=== PATIENT | female | born 1995 | race Caucasian/White ===

== ENCOUNTER → 2016-08-13 | Outpatient (CLI) | payer OTHER ==
--- NOTE | 2016-08-15 20:14 | US ---
Examination: Greater than 14 weeks transabdominal ultrasound with color Doppler and M-mode evaluatio n. HISTORY: FINDINGS: LMP is 03/23/2016 EVALUATION: Anterior placenta with a cephalic lie and grade 1. Visually amniotic fluid is with in normal limits. Three-vessel cord is seen. Ventricles are within normal limits. Nuchal fold thickness is 2 mm. Four chamber heart is noted. Heart rate is 151 beats per minute. BIOMETRY AND GESTATIONAL AGE: Biparietal diameter 4.7 cm. The abdominal circumference measures 15.6 cm. The femoral length is 3.5 cm with head circumference of 18.3 cm. Gestational age is 20 weeks and 4 days. The expected date of delivery is approximately 12/27/2016. Fetus weight is 378 grams. Overall the fetus is within the 66th percentile. Other detail anatomy summarized into PACs sheet after the images. No anatomical anomalies. IMPRESSION: Single active IU with cephalic fetus. Anterior placenta with grade 1, no placenta previa. No anomalies are seen. Amniotic fluid appears within normal limits.
== END | disposition home or self-care (01) ==
LOC: MW.US 14:02
PROVIDERS: ATTEND Advanced Practice Midwife
DX: Z34.92 Encounter for supervision of normal pregnancy, unspecified, second trimester (principal); Z3A.20 20 weeks gestation of pregnancy
CPT/HCPCS: 76805; 76805-26

== ENCOUNTER → 2016-09-23 | Outpatient (CLI) | payer OTHER | LOC: MW.CHOBGYN 08:15 | PROVIDERS: ATTEND Advanced Practice Midwife | DX: O09.899 Supervision of other high risk pregnancies, unspecified trimester (principal); F41.9 Anxiety disorder, unspecified | CPT/HCPCS: 36415; 82950; 84439; 84443; 85027; 86850; 86900; 86901; J2790 ==

== ENCOUNTER 2016-12-18 07:08 | Inpatient (IN) | payer OTHER ==
[2016-12-18] MEDS ORDERED: Methylergonovine 0.2 MG/1 ML Amp IM PRN (08:13)
[2016-12-18] MEDS ORDERED: Butorphanol 1 MG/ML SDV IVPUSH PRN (08:13)
[2016-12-18] MEDS ORDERED: Sodium Chloride 0.9% 10 ML Syringe FLUSH PRN (08:13)
[2016-12-18] MEDS ORDERED: Sodium Chloride 0.9% 2.5 ML Syringe FLUSH PRN (08:13)
[2016-12-18] MEDS ORDERED: Lidocaine 1% 50 ML MDV INJECT PRN (08:13)
[2016-12-18] MEDS ORDERED: Nalbuphine 10 MG/1 ML Vial IVPUSH PRN (08:13)
[2016-12-18] MEDS ORDERED: Water For Irrigation,Sterile 1,000 ML Container IRR PRN (08:13)
[2016-12-18] MEDS ORDERED: Carboprost Tromethamine 250 MCG/1 ML Amp IM PRN (08:13)
[2016-12-18] MEDS ORDERED: Misoprostol 200 MCG Tab PO PRN (08:13)
[2016-12-18] MEDS ORDERED: Lactated Ringers 1,000 ML IV SCH (08:15)
[2016-12-18] MEDS ORDERED: Oxytocin/Lactated Ringers 30 UNIT/500 ML BAG IV SCH (08:15)
[2016-12-18] MEDS ORDERED: Acetaminophen 500 MG Tab PO PRN ×2 (09:42)
[2016-12-18] MEDS ORDERED: Lanolin 100% Cream 7 GM Tube TOP PRN (09:42)
[2016-12-18] MEDS ORDERED: Bisacodyl 10 MG Supp RECTAL PRN (09:42)
[2016-12-18] MEDS ORDERED: Docusate Sodium 100 MG Cap PO PRN (09:42)
[2016-12-18] MEDS ORDERED: Witch Hazel Medicated Pads 40/Jar TOP PRN (09:42)
[2016-12-18] MEDS ORDERED: Benzocaine/Menthol 20%-0.5% Spray 78 GM Cannister TOP PRN (09:42)
[2016-12-18] MEDS ORDERED: Ibuprofen 400 MG Tab PO PRN (09:42)
[2016-12-18] MEDS ORDERED: oxyCODONE 5 MG Tab PO PRN (09:42)
--- NOTE | 2016-12-18 09:45 | PCM.LDHP ---
L&D History of Present Illness - General Date of Service: 12/18/16 Admit Problem/Dx: Patient Status Order with Admit Dx/Problem 12/18/16 08:14 Patient Status [ADT] Routine 12/18/16 09:42 Patient Status [ADT] Routine Admission Diagnosis/Problem Admission Diagnosis/Problem Source of Information: Patient History Limitations: Reports: No Limitations - History of Present Illness Improves with: Reports: None Worsens with: Reports: None Associated Symptoms: Reports: N - Related Data Allergies/Adverse Reactions: Allergies Allergy/AdvReac Type Severity Reaction Status Date / Time oxycodone [Oxycodone] Allergy Jaundice Verified 09/28/13 12:48 pumpkin Allergy Mouth Sores Verified 03/29/15 11:06 Home Medications: Home Meds Ferrous Sulfate [Iron] 1 tab PO ASDIRECTED 03/29/15 [History] Magnesium 1 tab PO DAILY 03/29/15 [History] Multivitamin [Multivitamins] 1 tab PO DAILY 03/29/15 [History] Protein Supplement [Procel] 1 packet PO DAILY 03/29/15 [History] Past Medical History 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: Reports: Asthma [employer]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 , Psychiatric History: Reports: ADHD, Anxiety, Depression - Infectious Disease History Infectious Disease History: Reports: Hepatitis B - Past Surgical History Other HEENT Surgeries/Procedures: hx of PE tube placement and T&A Social & Family History - Tobacco Use Smoking Status *Q: Never Smoker Second Hand Smoke Exposure: No - Alcohol Use Days Per Week of Alcohol Use: 0 Number of Drinks Per Day: 0 Total Drinks Per Week: 0 - Recreational Drug Use Recreational Drug Use: No Drug Use in Last 12 Months: No H&P Review of Systems - Review of Systems: Review Of Systems: See Below General: Reports: No Symptoms HEENT: Reports: No Symptoms Pulmonary: Reports: No Symptoms Cardiovascular: Reports: No Symptoms Gastrointestinal: Reports: No Symptoms Genitourinary: Reports: No Symptoms Musculoskeletal: Reports: No Symptoms Skin: Reports: No Symptoms Psychiatric: Reports: No Symptoms Neurological: Reports: No Symptoms Hematologic/Lymphatic: Reports: No Symptoms Immunologic: Reports: No Symptoms L&D Exam - Exam Exam: See Below - Vital Signs Weight: 63.503 kg - OB Specific Fundal Height In cm: 37 Contraction Intensity: Moderate Movement: Active Heart Tones: Present Presentation: Vertex - Schmitz Score Schmitz Score Effacement: >80% Schmitz Score Dilation: > 5 cm Schmitz Score 's Station: -1 ,0 - Exam General: Alert, Oriented HEENT: PERRLA, Conjunctiva Clear, EACs Clear, EOMI, Hearing Intact, Mucosa Moist & [place], Nares Patent, Normal Nasal Septum, Posterior Pharynx Clear, TMs Clear Neck: Supple, Trachea Midline Lungs: Clear to Auscultation, Normal Respiratory Effort Cardiovascular: Regular Rate, Regular Rhythm GI/Abdominal Exam: Normal Bowel Sounds, Soft, Non-Tender, No Organomegaly, No Distention, No Abnormal Bruit, No Mass, Pelvis Stable Rectal Exam: Normal Exam, Normal Rectal Tone Genitourinary: Normal external exam, Normal bimanual exam, Normal speculum exam Back Exam: Normal Inspection, Full Range of Motion Extremities: Normal Inspection, Normal Range of Motion, Non-Tender, No Pedal Edema, Normal Capillary Refill Skin: Warm, Dry, Intact Neurological: Cranial Nerves Intact, Reflexes Equal Bilateral Psychiatric: Alert, Normal Affect, Normal Mood - Patient Data Lab Results Last 24 hrs: Laboratory Results - last 24 hr 12/18/16 Range/Units 08:24 WBC 11.64 H (4.0-11.0) K/uL RBC 3.60 L (4.30-5.90) M/uL Hgb 10.9 L (12.0-16.0) g/dL Hct 32.6 L (36.0-46.0) % MCV 90.6 (80.0-98.0) fL MCH 30.3 (27.0-32.0) pg MCHC 33.4 (31.0-37.0) g/dL RDW Std Deviation 42.2 (28.0-62.0) fl RDW Coeff of Wanda 13 (11.0-15.0) % Plt Count 122 L (150-400) K/uL MPV 10.40 (7.40-12.00) fL Nucleated RBC % 0.0 /100WBC Nucleated RBCs # 0 K/uL Result Diagrams: 12/18/16 08:24 Problem List Initiated/Reviewed/Updated: Yes Orders Last 24hrs: Active Orders 24 hr Category Date Time Status Patient Status [ADT] Routine ADT 12/18/16 09:42 Ordered Heart Tones [RC] CONTINUOUS Care 12/18/16 08:14 Active Non Stress Test [RC] PER UNIT ROUTINE Care 12/18/16 08:14 Active May Shower [RC] ASDIRECTED Care 12/18/16 08:14 Active May Shower [RC] ASDIRECTED Care 12/18/16 09:42 Ordered Notify Provider [RC] PRN Care 12/18/16 08:14 Active Up ad Jess [RC] ASDIRECTED Care 12/18/16 08:14 Active Up ad Jess [RC] ASDIRECTED Care 12/18/16 09:42 Ordered Vaginal Exam [RC] PRN Care 12/18/16 08:14 Active Vital Signs [RC] PER UNIT ROUTINE Care 12/18/16 08:14 Active Vital Signs [RC] PER UNIT ROUTINE Care 12/18/16 09:42 Ordered HEMOGLOBIN/HEMATOCRIT,HH [HEME] Timed Lab 12/19/16 05:11 Ordered TYPE AND SCREEN [BBK] Routine Lab 12/18/16 08:24 Received Acetaminophen [Tylenol Extra Strength] Med 12/18/16 09:42 Ordered 1,000 mg PO Q4H PRN Acetaminophen [Tylenol Extra Strength] Med 12/18/16 09:42 Ordered 500 mg PO Q4H PRN Benzocaine/Menthol [Dermoplast Pain Relief 20%-0.5% Med 12/18/16 09:42 Ordered [place]] 78 gm TOP ASDIRECTED PRN Bisacodyl [Dulcolax] Med 12/18/16 09:42 Ordered 10 mg RECTAL .ONCE PRN Butorphanol [Stadol] Med 12/18/16 08:13 Active 1 mg IVPUSH Q1H PRN Carboprost Tromethamine [Hemabate DS] Med 12/18/16 08:13 Active 250 mcg IM ASDIRECTED PRN Docusate Sodium [Colace] Med 12/18/16 09:42 Ordered 100 mg PO BID PRN Ibuprofen [Motrin] Med 12/18/16 09:42 Ordered 400 mg PO Q4H PRN Ibuprofen [Motrin] Med 12/18/16 09:42 Ordered 800 mg PO Q6H PRN Lactated Ringers [Ringers, Lactated] 1,000 ml Med 12/18/16 08:15 Active IV ASDIRECTED Lanolin [Lansinoh HPA] Med 12/18/16 09:42 Ordered See Dose Instructions TOP ASDIRECTED PRN Lidocaine 1% [Xylocaine 1%] Med 12/18/16 08:13 Active 50 ml INJECT .ONCE PRN Methylergonovine [Methergine] Med 12/18/16 08:13 Active 0.2 mg IM ASDIRECTED PRN Misoprostol [Cytotec] Med 12/18/16 08:13 Active 200 mcg PO .ONCE PRN Nalbuphine [Nubain] Med 12/18/16 08:13 Active 10 mg IVPUSH Q1H PRN Oxytocin/Lactated Ringers [Pitocin in LR 30 Units/500 Med 12/18/16 08:15 Active ML] 30 unit in 500 ml IV TITRATE Sodium Chloride 0.9% [Saline Flush] Med 12/18/16 08:13 Active 10 ml FLUSH ASDIRECTED PRN Sodium Chloride 0.9% [Saline Flush] Med 12/18/16 08:13 Active 2.5 ml FLUSH ASDIRECTED PRN Water For Irrigation,Sterile [Sterile Water for Med 12/18/16 08:13 Active Irrigation] 1,000 ml IRR ASDIRECTED PRN Witch Carmencita [Tucks] Med 12/18/16 09:42 Ordered 1 pad TOP ASDIRECTED PRN oxyCODONE Med 12/18/16 09:42 Ordered 5 mg PO Q2H PRN Assess Lochia [WOMSER] Per Unit Routine Ot 12/18/16 09:42 Ordered Assess Uterine Involution [WOMSER] Per Unit Routine Ot 12/18/16 09:42 Ordered Scalp Electrode [WOMSER] Per Unit Routine Ot 12/18/16 08:14 Ordered Peripheral IV Discontinue [OM.PC] Routine Ot 12/18/16 09:42 Ordered Peripheral IV Insertion Adult [OM.PC] Routine Ot 12/18/16 08:14 Ordered Resuscitation Status Routine Resus Stat 12/18/16 08:13 Ordered Medication Orders Butorphanol Tartrate (Stadol) 1 mg IVPUSH Q1H PRN PRN Reason: Pain Carboprost Tromethamine (Hemabate Ds) 250 mcg IM ASDIRECTED PRN PRN Reason: Post Hemorrhage Lactated Ringer's (Ringers, Lactated) 1,000 mls @ 150 mls/hr IV ASDIRECTED JOHNATHAN Oxytocin/Lactated Ringer's (Pitocin In Lr 30 Units/500 Ml) 30 unit in 500 mls @ 250 mls/hr IV TITRATE JOHNATHAN PRN Reason: 250 MUNITS/MIN Stop: 12/18/16 10:14 Last Admin: 12/18/16 09:30 Dose: 250 munits/min, 250 mls/hr Lidocaine HCl (Xylocaine 1%) 50 ml INJECT .ONCE PRN PRN Reason: Laceration repair Methylergonovine Maleate (Methergine) 0.2 mg IM ASDIRECTED PRN PRN Reason: Post Hemorrhage Misoprostol (Cytotec) 200 mcg PO .ONCE PRN PRN Reason: Post Hemorrhage Nalbuphine HCl (Nubain) 10 mg IVPUSH Q1H PRN PRN Reason: Pain (severe 7-10) Stop: 12/18/16 10:14 Sodium Chloride (Saline Flush) 10 ml FLUSH ASDIRECTED PRN PRN Reason: Keep Vein Open Sodium Chloride (Saline Flush) 2.5 ml FLUSH ASDIRECTED PRN PRN Reason: Keep Vein Open Sterile Water (Sterile Water For Irrigation) 1,000 ml IRR ASDIRECTED PRN PRN Reason: delivery Assessment/Plan Comment:: Termpregnancy in active labor. P2002
[2016-12-18] MEDS: Ibuprofen 800 MG Tab PO PRN ×2 (11:14→21:12)
--- NOTE | 2016-12-18 15:28 | OR ---
SURGEON: Michael Ramirez MD DATE OF PROCEDURE: Ms. Fan is a 21-year-old. She is para 2-0-0-2, she is term. 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 She has no complication. Her GBS status was negative. She is admitted this morning to Labor and Delivery in active labor. She is, at the time of admission, 5-6 cm, vertex, complete, -1 station. The patient's heart rate was essentially category one. The patient has progressed without any problem and she was able to accomplish normal spontaneous vaginal delivery of a male fetus. score reported to be 8 and 9 and the weight is not available. The placenta delivered spontaneous, complete, and intact without any problem. There was no perineal laceration and there was no need for episiotomy. The estimated blood loss in this delivery is 250-300. There was no complication. SHAHIDA / SAMUEL /[id number]
[2016-12-19 09:08] VITALS: BP 129/72
--- NOTE | 2016-12-19 09:09 | PCM.PNPP ---
- General Info Date of Service: 12/19/16 Functional Status: Reports: Pain Controlled - Review of Systems General: Reports: No Symptoms HEENT: Reports: No Symptoms Pulmonary: Reports: No Symptoms Cardiovascular: Reports: No Symptoms Gastrointestinal: Reports: No Symptoms Genitourinary: Reports: No Symptoms Musculoskeletal: Reports: No Symptoms Skin: Reports: No Symptoms Neurological: Reports: No Symptoms Psychiatric: Reports: No Symptoms - General Info Date of Service: 12/19/16 - Patient Data Vital Signs - most recent: Last Vital Signs Temp 36.8 C 12/19/16 08:04 Pulse 79 12/19/16 08:04 Resp 20 12/19/16 08:04 BP 129/72 12/19/16 08:04 Pulse Ox 100 12/18/16 20:00 Weight - most recent: 63.503 kg Lab Results - last 24 hrs: Laboratory Results - last 24 hr 12/18/16 12/19/16 Range/Units 08:24 04:55 Hgb 10.8 L (12.0-16.0) g/dL Hct 32.5 L (36.0-46.0) % Blood Type A NEGATIVE Antibody Screen NEGATIVE Med Orders - Current: Current Medications Acetaminophen (Tylenol Extra Strength) 500 mg PO Q4H PRN PRN Reason: Pain Acetaminophen (Tylenol Extra Strength) 1,000 mg PO Q4H PRN PRN Reason: Pain Benzocaine/Menthol (Dermoplast Pain Relief 20%-0.5% [place]) 78 gm TOP ASDIRECTED PRN PRN Reason: Perineal Comfort Measure Bisacodyl (Dulcolax) 10 mg RECTAL .ONCE PRN PRN Reason: Constipation Butorphanol Tartrate (Stadol) 1 mg IVPUSH Q1H PRN PRN Reason: Pain Carboprost Tromethamine (Hemabate Ds) 250 mcg IM ASDIRECTED PRN PRN Reason: Post Hemorrhage Docusate Sodium (Colace) 100 mg PO BID PRN PRN Reason: Constipation Emollient Ointment (Lansinoh Hpa) 0 gm TOP ASDIRECTED PRN PRN Reason: Sore Nipples Lactated Ringer's (Ringers, Lactated) 1,000 mls @ 150 mls/hr IV ASDIRECTED JOHNATHAN Ibuprofen (Motrin) 400 mg PO Q4H PRN PRN Reason: Pain Ibuprofen (Motrin) 800 mg PO Q6H PRN PRN Reason: Pain Last Admin: 12/18/16 21:12 Dose: 800 mg Lidocaine HCl (Xylocaine 1%) 50 ml INJECT .ONCE PRN PRN Reason: Laceration repair Methylergonovine Maleate (Methergine) 0.2 mg IM ASDIRECTED PRN PRN Reason: Post Hemorrhage Misoprostol (Cytotec) 200 mcg PO .ONCE PRN PRN Reason: Post Hemorrhage Sodium Chloride (Saline Flush) 10 ml FLUSH ASDIRECTED PRN PRN Reason: Keep Vein Open Sodium Chloride (Saline Flush) 2.5 ml FLUSH ASDIRECTED PRN PRN Reason: Keep Vein Open Sterile Water (Sterile Water For Irrigation) 1,000 ml IRR ASDIRECTED PRN PRN Reason: delivery Sarah Tse (Tucks) 1 pad TOP ASDIRECTED PRN PRN Reason: comfort care Discontinued Medications Oxytocin/Lactated Ringer's (Pitocin In Lr 30 Units/500 Ml) 30 unit in 500 mls @ 250 mls/hr IV TITRATE JOHNATHAN PRN Reason: 250 MUNITS/MIN Stop: 12/18/16 10:14 Last Admin: 12/18/16 09:30 Dose: 250 munits/min, 250 mls/hr Nalbuphine HCl (Nubain) 10 mg IVPUSH Q1H PRN PRN Reason: Pain (severe 7-10) Stop: 12/18/16 10:14 Oxycodone HCl (Oxycodone) 5 mg PO Q2H PRN PRN Reason: Pain - Interaction Infant Disposition, : [place] in Room with Family Interaction: Holding Feeding: Attempted ; Nursed Fair/Poor Support Person: Significant Other - Recovery Exam Fundal Tone: Firm Fundal Level: 2 Fingerbreadths Below Umbilicus Fundal Placement: Midline Lochia Amount: Scant Lochia Color: Rubra/Red Perineum Description: Intact, Minimal Bruising/Swelling Episiotomy/Laceration: None Bladder Status: Voiding Urinary Elimination: Voided - Exam General: alert, oriented HEENT: Pupils equal Neck: supple Lungs: Clear to Auscultation, Normal Respiratory Effort Cardiovascular: Regular Rate, Regular Rhythm GI/Abdominal Exam: Normal Bowel Sounds, Soft, Non-Tender, No Organomegaly, No Distention, No Abnormal Bruit, No Mass, Pelvis Stable Extremities: Normal Inspection, Normal Range of Motion, Non-Tender, No Pedal Edema, Normal Capillary Refill Skin: warm, dry, intact Wound/Incisions: healing well Neurological: no new focal deficit Psy/Mental Status: alert, normal affect, normal mood - Problem List Review Problem List Initiated/Reviewed/Updated: Yes - My Orders Last 24 Hours: My Active Orders 12/18/16 08:13 Butorphanol [Stadol] 1 mg IVPUSH Q1H PRN Carboprost Tromethamine [Hemabate DS] 250 mcg IM ASDIRECTED PRN Lidocaine 1% [Xylocaine 1%] 50 ml INJECT .ONCE PRN Methylergonovine [Methergine] 0.2 mg IM ASDIRECTED PRN Misoprostol [Cytotec] 200 mcg PO .ONCE PRN Sodium Chloride 0.9% [Saline Flush] 10 ml FLUSH ASDIRECTED PRN Sodium Chloride 0.9% [Saline Flush] 2.5 ml FLUSH ASDIRECTED PRN Water For Irrigation,Sterile [Sterile Water for Irrigation] 1,000 ml IRR ASDIRECTED PRN Resuscitation Status Routine 12/18/16 08:14 Vital Signs [RC] PER UNIT ROUTINE Scalp Electrode [WOMSER] Per Unit Routine Peripheral IV Insertion Adult [OM.PC] Routine 12/18/16 08:15 Lactated Ringers [Ringers, Lactated] 1,000 ml IV ASDIRECTED 12/18/16 09:42 Patient Status [ADT] Routine May Shower [RC] ASDIRECTED Up ad Jess [RC] ASDIRECTED Acetaminophen [Tylenol Extra Strength] 1,000 mg PO Q4H PRN Acetaminophen [Tylenol Extra Strength] 500 mg PO Q4H PRN Benzocaine/Menthol [Dermoplast Pain Relief 20%-0.5% [place]] 78 gm TOP ASDIRECTED PRN Bisacodyl [Dulcolax] 10 mg RECTAL .ONCE PRN Docusate Sodium [Colace] 100 mg PO BID PRN Ibuprofen [Motrin] 400 mg PO Q4H PRN Ibuprofen [Motrin] 800 mg PO Q6H PRN Lanolin [Lansinoh HPA] See Dose Instructions TOP ASDIRECTED PRN Witch Carmencita [Tucks] 1 pad TOP ASDIRECTED PRN Assess Lochia [WOMSER] Per Unit Routine Assess Uterine Involution [WOMSER] Per Unit Routine Peripheral IV Discontinue [OM.PC] Routine 12/19/16 Breakfast Regular Diet [DIET] - Assessment Assessment:: Status post normal spontaneous vaginal deliveries she did well send her home today - Plan Plan:: Termpregnancy in active labor. P2002
--- NOTE | 2016-12-19 09:10 | PCM.DCSUM1 ---
Discharge Summary - Discharge Data Discharge Date: 12/19/16 Discharge Disposition: Home, Self-Care 01 Condition: Good - Patient Instructions Diet: Usual Diet as Tolerated Activity: As Tolerated Showering/Bathing: May Shower Notify Provider of: Fever, Increased Pain, Nausea and/or Vomiting - Discharge Plan Home Medications: Home Meds Ferrous Sulfate [Iron] 1 tab PO ASDIRECTED 03/29/15 [History] Magnesium 1 tab PO DAILY 03/29/15 [History] Multivitamin [Multivitamins] 1 tab PO DAILY 03/29/15 [History] Protein Supplement [Procel] 1 packet PO DAILY 03/29/15 [History] Referrals: [facility] [Outside] Lyudmila Tovar CNM [Primary Care Provider] - 02/04/17 3:00 pm - General Info Date of Service: 12/19/16 Functional Status: Reports: Pain Controlled - Review of Systems General: Reports: No Symptoms HEENT: Reports: No Symptoms Pulmonary: Reports: No Symptoms Cardiovascular: Reports: No Symptoms Gastrointestinal: Reports: No Symptoms Genitourinary: Reports: No Symptoms Musculoskeletal: Reports: No Symptoms Skin: Reports: No Symptoms Neurological: Reports: No Symptoms Psychiatric: Reports: No Symptoms - Patient Data Vitals - Most Recent: Last Vital Signs Temp 36.8 C 12/19/16 08:04 Pulse 79 12/19/16 08:04 Resp 20 12/19/16 08:04 BP 129/72 12/19/16 08:04 Pulse Ox 98 12/19/16 08:04 Weight - Most Recent: 63.503 kg Lab Results - Last 24 hrs: Laboratory Results - last 24 hr 12/18/16 12/19/16 Range/Units 08:24 04:55 Hgb 10.8 L (12.0-16.0) g/dL Hct 32.5 L (36.0-46.0) % Blood Type A NEGATIVE Antibody Screen NEGATIVE Med Orders - Current: Current Medications Acetaminophen (Tylenol Extra Strength) 500 mg PO Q4H PRN PRN Reason: Pain Acetaminophen (Tylenol Extra Strength) 1,000 mg PO Q4H PRN PRN Reason: Pain Benzocaine/Menthol (Dermoplast Pain Relief 20%-0.5% [place]) 78 gm TOP ASDIRECTED PRN PRN Reason: Perineal Comfort Measure Bisacodyl (Dulcolax) 10 mg RECTAL .ONCE PRN PRN Reason: Constipation Butorphanol Tartrate (Stadol) 1 mg IVPUSH Q1H PRN PRN Reason: Pain Carboprost Tromethamine (Hemabate Ds) 250 mcg IM ASDIRECTED PRN PRN Reason: Post Hemorrhage Docusate Sodium (Colace) 100 mg PO BID PRN PRN Reason: Constipation Emollient Ointment (Lansinoh Hpa) 0 gm TOP ASDIRECTED PRN PRN Reason: Sore Nipples Lactated Ringer's (Ringers, Lactated) 1,000 mls @ 150 mls/hr IV ASDIRECTED JOHNATHAN Ibuprofen (Motrin) 400 mg PO Q4H PRN PRN Reason: Pain Ibuprofen (Motrin) 800 mg PO Q6H PRN PRN Reason: Pain Last Admin: 12/18/16 21:12 Dose: 800 mg Lidocaine HCl (Xylocaine 1%) 50 ml INJECT .ONCE PRN PRN Reason: Laceration repair Methylergonovine Maleate (Methergine) 0.2 mg IM ASDIRECTED PRN PRN Reason: Post Hemorrhage Misoprostol (Cytotec) 200 mcg PO .ONCE PRN PRN Reason: Post Hemorrhage Sodium Chloride (Saline Flush) 10 ml FLUSH ASDIRECTED PRN PRN Reason: Keep Vein Open Sodium Chloride (Saline Flush) 2.5 ml FLUSH ASDIRECTED PRN PRN Reason: Keep Vein Open Sterile Water (Sterile Water For Irrigation) 1,000 ml IRR ASDIRECTED PRN PRN Reason: delivery Witch Carmencita (Tucks) 1 pad TOP ASDIRECTED PRN PRN Reason: comfort care Discontinued Medications Oxytocin/Lactated Ringer's (Pitocin In Lr 30 Units/500 Ml) 30 unit in 500 mls @ 250 mls/hr IV TITRATE JOHNATHAN PRN Reason: 250 MUNITS/MIN Stop: 12/18/16 10:14 Last Admin: 12/18/16 09:30 Dose: 250 munits/min, 250 mls/hr Nalbuphine HCl (Nubain) 10 mg IVPUSH Q1H PRN PRN Reason: Pain (severe 7-10) Stop: 12/18/16 10:14 Oxycodone HCl (Oxycodone) 5 mg PO Q2H PRN PRN Reason: Pain - Exam General: Reports: alert, oriented HEENT: Reports: Pupils equal, Pupils reactive, EOMI, Mucous membr. moist/pink Neck: Reports: supple Lungs: Reports: Clear to Auscultation, Normal Respiratory Effort Cardiovascular: Reports: Regular Rate, Regular Rhythm GI/Abdominal Exam: Normal Bowel Sounds, Soft, Non-Tender, No Organomegaly, No Distention, No Abnormal Bruit, No Mass, Pelvis Stable (Female) Exam: Normal External Exam, Normal Speculum Exam, Normal Bimanual Exam Rectal (Female) Exam: Normal Exam, Normal Rectal Tone Back Exam: Reports: Normal Inspection, Full Range of Motion Extremities: Normal Inspection, Normal Range of Motion, Non-Tender, No Pedal Edema, Normal Capillary Refill Skin: Reports: warm, dry, intact Wound/Incisions: Reports: healing well Neurological: Reports: no new focal deficit Psy/Mental Status: Reports: alert, normal affect, normal mood *Q Meaningful Use (DIS) - VTE *Q VTE Criteria *Q: - Stroke *Q Stroke Criteria *Q: - AMI *Q AMI Criteria *Q:
== END 2016-12-19 12:55 | disposition home or self-care (01) | DRG 775 ==
LOC: MW.OBCHECK 07:08 → MW.OB 07:08 → MW.OBCHECK 08:13 → MW.OB 08:14 → OBSVTOIN 09:29 → MW.OB 11:58
PROVIDERS: ADMIT Obstetrics & Gynecology; ATTEND Obstetrics & Gynecology
PROC: 10E0XZZ Delivery of Products of Conception, External Approach (ICD-10-PCS; principal; 2016-12-18)
DX: O80 Encounter for full-term uncomplicated delivery (principal); Z3A.38 38 weeks gestation of pregnancy; Z37.0 Single live birth
CPT/HCPCS: 36415; 59025; 85014; 85018; 85027; 86850; 86900; 86901; A9270-GY

== ENCOUNTER 2019-04-02 00:18 | Inpatient (IN) | payer OTHER ==
[2019-04-02] MEDS ORDERED: Nalbuphine 10 MG/1 ML Vial IVPUSH PRN (00:46)
[2019-04-02] MEDS ORDERED: Ondansetron 4 MG/2 ML SDV IVPUSH PRN (00:46)
[2019-04-02] MEDS ORDERED: Water For Irrigation,Sterile 1,000 ML Container IRR PRN (00:46)
[2019-04-02] MEDS ORDERED: Methylergonovine 0.2 MG/1 ML Amp IM PRN (00:46)
[2019-04-02] MEDS ORDERED: Tranexamic Acid 1,000 MG in Sodium Chloride 0.9% 100 ML IV PRN (00:46)
[2019-04-02] MEDS ORDERED: Butorphanol 1 MG/ML SDV IVPUSH PRN (00:46)
[2019-04-02] MEDS ORDERED: Lidocaine 1% 50 ML MDV INJECT PRN (00:46)
[2019-04-02] MEDS ORDERED: Sodium Chloride 0.9% 10 ML Syringe FLUSH PRN (00:46)
[2019-04-02] MEDS ORDERED: Sodium Chloride 0.9% 2.5 ML Syringe FLUSH PRN (00:46)
[2019-04-02] MEDS ORDERED: Carboprost Tromethamine 250 MCG/1 ML Amp IM PRN (00:46)
[2019-04-02] MEDS ORDERED: Sodium Chloride 0.9% 10 ML SDV IV PRN (00:46)
[2019-04-02] MEDS ORDERED: Misoprostol 200 MCG Tab PO PRN (00:46)
[2019-04-02] MEDS ORDERED: Terbutaline 1 MG/ML SDV SUBCUT PRN (00:50)
[2019-04-02] MEDS ORDERED: Misoprostol 25 MCG (1/4 of 100 MCG) Tab VAG PRN (00:50)
[2019-04-02] MEDS ORDERED: Misoprostol 25 MCG (1/4 of 100 MCG) Tab PO ONE ×2 (00:53→06:18)
[2019-04-02] MEDS ORDERED: Oxytocin/0.9 % Sodium Chloride 30 UNIT/500 ML BAG IV SCH ×2 (01:00)
[2019-04-02] MEDS: Lactated Ringers 1,000 ML IV SCH ×3 (01:09→11:20)
[2019-04-02] MEDS: Misoprostol 25 MCG (1/4 of 100 MCG) Tab VAG PRN ×2 (02:10→06:30)
--- NOTE | 2019-04-02 10:28 | PCM.LDHP ---
L&D History of Present Illness - General Date of Service: 04/02/19 Admit Problem/Dx: Patient Status Order with Admit Dx/Problem 04/02/19 00:15 Patient Status [ADT] Routine Admission Diagnosis/Problem Admission Diagnosis/Problem 04/02/19 10:23 23yo EDC 04/15/2019 38 1/7wks, IOL for IUGR, A neg, RI, GBS neg. Source of Information: Patient History Limitations: Reports: No Limitations - History of Present Illness Improves with: Reports: None Worsens with: Reports: None Associated Symptoms: Reports: N - Related Data Allergies/Adverse Reactions: Allergies Allergy/AdvReac Type Severity Reaction Status Date / Time oxycodone [Oxycodone] Allergy Jaundice Verified 04/02/19 02:56 pumpkin Allergy Mouth Sores Verified 03/29/15 11:06 Home Medications: Home Meds Ferrous Sulfate [Iron] 1 tab PO ASDIRECTED 03/29/15 [History] Magnesium 1 tab PO DAILY 03/29/15 [History] Multivitamin [Multivitamins] 1 tab PO DAILY 03/29/15 [History] Protein Supplement [Procel] 1 packet PO DAILY 03/29/15 [History] Past Medical History - Past Health History Medical/Surgical History: Denies Medical/Surgical History 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: Reports: Asthma 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 , Psychiatric History: Reports: ADHD, Anxiety, Depression - Infectious Disease History Infectious Disease History: Reports: Hepatitis B - Past Surgical History Other HEENT Surgeries/Procedures: hx of PE tube placement and T&A Respiratory Surgical History: Reports: None Social & Family History - Family History Family Medical History: Noncontributory - Tobacco Use Smoking Status *Q: Never Smoker - Caffeine Use Caffeine Use: Reports: None - Recreational Drug Use Recreational Drug Use: No H&P Review of Systems - Review of Systems: Review Of Systems: See Below General: Reports: No Symptoms HEENT: Reports: No Symptoms Pulmonary: Reports: No Symptoms Cardiovascular: Reports: No Symptoms Gastrointestinal: Reports: No Symptoms Genitourinary: Reports: No Symptoms Musculoskeletal: Reports: No Symptoms Skin: Reports: No Symptoms Psychiatric: Reports: No Symptoms Neurological: Reports: No Symptoms Hematologic/Lymphatic: Reports: No Symptoms Immunologic: Reports: No Symptoms L&D Exam - Exam Exam: See Below - Vital Signs Weight: 65.771 kg - OB Specific Contraction Intensity: Moderate Movement: Active Heart Tones: Present Heart Tones per Min: 125 Heart Rate (FHR) Variability: Moderate (6-25 bmp) Presentation: Vertex - Schmitz Score Schmitz Score Cervix Position: Midposition Schmitz Score Consistency: Soft Schmitz Score Effacement: 51-70% Schmitz Score Dilation: 1-2 cm Schmitz Score 's Station: -2 Schmitz Score Total: 7 - Exam General: Alert, Oriented, Cooperative HEENT: Hearing Intact Lungs: Normal Respiratory Effort GI/Abdominal Exam: Soft, Non-Tender Rectal Exam: Deferred Genitourinary: Normal external exam, Normal speculum exam, Cervical dilitation Back Exam: Normal Inspection, Full Range of Motion Extremities: Normal Capillary Refill Skin: Warm, Dry, Intact Neurological: Cranial Nerves Intact, Strength Equal Bilateral, Normal Gait, Normal Speech, Normal Tone, Sensation Intact Psychiatric: Alert, Normal Affect, Normal Mood - Patient Data Lab Results Last 24 hrs: Laboratory Results - last 24 hr 04/02/19 04/02/19 Range/Units 01:04 01:04 WBC 8.79 (4.0-11.0) K/uL RBC 3.44 L (4.30-5.90) M/uL Hgb 11.3 L (12.0-16.0) g/dL Hct 32.8 L (36.0-46.0) % MCV 95.3 (80.0-98.0) fL MCH 32.8 H (27.0-32.0) pg MCHC 34.5 (31.0-37.0) g/dL RDW Std Deviation 42.0 (28.0-62.0) fl RDW Coeff of Wanda 13 (11.0-15.0) % Plt Count 171 (150-400) K/uL MPV 10.20 (7.40-12.00) fL Blood Type A NEGATIVE Antibody Screen NEGATIVE Result Diagrams: 04/02/19 01:04 - Problem List (1) Supervision of normal IUP (intrauterine ) in multigravida SNOMED Code(s): 183579961, 200961720, 200746131 ICD Code: Z34.80 - ENCOUNTER FOR SUPRVSN OF NORMAL , UNSP TRIMESTER Status: Acute Priority: High Current Visit: Yes Qualifiers: Trimester: third trimester Qualified Code(s): Z34.83 - Encounter for supervision of other normal , third trimester Problem List Initiated/Reviewed/Updated: Yes Orders Last 24hrs: Active Orders 24 hr Category Date Time Status Patient Status [ADT] Routine ADT 04/02/19 00:15 Active Communication Order [RC] ASDIRECTED Care 04/02/19 00:50 Active Communication Order [RC] ASDIRECTED Care 04/02/19 00:50 Active Communication Order [RC] ASDIRECTED Care 04/02/19 00:50 Active May Shower [RC] ASDIRECTED Care 04/02/19 00:46 Active Notify Provider [RC] PRN Care 04/02/19 00:46 Active Notify Provider [RC] PRN Care 04/02/19 00:50 Active Notify Provider [RC] PRN Care 04/02/19 00:50 Active Notify Provider [RC] STAT Care 04/02/19 00:50 Active Up ad Jess [RC] ASDIRECTED Care 04/02/19 00:46 Active Vital Signs [RC] PER UNIT ROUTINE Care 04/02/19 00:46 Active Regular Diet [DIET] Diet 04/02/19 Breakfast Active RAPID PLASMA REAGIN, QUANT [REF] Routine Lab 04/02/19 01:04 Received Butorphanol [Stadol] Med 04/02/19 00:46 Active 1 mg IVPUSH Q1H PRN Carboprost Tromethamine [Hemabate DS] Med 04/02/19 00:46 Active 250 mcg IM ASDIRECTED PRN Lactated Ringers [Ringers, Lactated] 1,000 ml Med 04/02/19 01:00 Active IV ASDIRECTED Lidocaine 1% [Xylocaine 1%] Med 04/02/19 00:46 Active 50 ml INJECT ONETIME PRN Methylergonovine [Methergine] Med 04/02/19 00:46 Active 0.2 mg IM ASDIRECTED PRN Nalbuphine [Nubain] Med 04/02/19 00:46 Active 10 mg IVPUSH Q1H PRN Ondansetron [Zofran] Med 04/02/19 00:46 Active 4 mg IVPUSH Q4H PRN Oxytocin/0.9 % Sodium Chloride [Oxytocin 30 Unit/500 ML Med 04/02/19 01:00 Active -NS] 30 unit in 500 ml IV TITRATE Oxytocin/0.9 % Sodium Chloride [Oxytocin 30 Unit/500 ML Med 04/02/19 01:00 Active -NS] 30 unit in 500 ml IV TITRATE Sodium Chloride 0.9% [Normal Saline] Med 04/02/19 00:46 Active 10 ml IV ASDIRECTED PRN Sodium Chloride 0.9% [Saline Flush] Med 04/02/19 00:46 Active 10 ml FLUSH ASDIRECTED PRN Sodium Chloride 0.9% [Saline Flush] Med 04/02/19 00:46 Active 2.5 ml FLUSH ASDIRECTED PRN Terbutaline [Brethine] Med 04/02/19 00:50 Active 0.25 mg SUBCUT ASDIRECTED PRN Tranexamic Acid [Cyklokapron] 1,000 mg Med 04/02/19 00:46 Active Sodium Chloride 0.9% [Normal Saline] 100 ml IV ONETIME Water For Irrigation,Sterile [Sterile Water for Med 04/02/19 00:46 Active Irrigation] 1,000 ml IRR ASDIRECTED PRN miSOPROStol [Cytotec] Med 04/02/19 00:46 Active 200 mcg PO ONETIME PRN miSOPROStol [Cytotec] Med 04/02/19 10:30 Active 25 mcg PO Q4H miSOPROStol [Cytotec] Med 04/02/19 00:50 Active 25 mcg VAG Q4H PRN Scalp Electrode [WOMSER] Per Unit Routine Oth 04/02/19 00:46 Ordered Medication Administration Instruction [OM.PC] Q3H Oth 04/02/19 01:00 Ordered Peripheral IV Insertion Adult [OM.PC] Routine Oth 04/02/19 00:46 Ordered Resuscitation Status Routine Resus Stat 04/02/19 00:46 Ordered Medication Orders Butorphanol Tartrate (Stadol) 1 mg IVPUSH Q1H PRN PRN Reason: Pain Carboprost Tromethamine (Hemabate Ds) 250 mcg IM ASDIRECTED PRN PRN Reason: Post Hemorrhage Lactated Ringer's (Ringers, Lactated) 1,000 mls @ 150 mls/hr IV ASDIRECTED JOHNATHAN Last Admin: 04/02/19 01:09 Dose: 150 mls/hr Oxytocin/Sodium Chloride (Oxytocin 30 Unit/500 Ml-Ns) 30 unit in 500 mls @ 500 mls/hr IV TITRATE JOHNATHAN Tranexamic Acid 1,000 mg/ (Sodium Chloride) 110 mls @ 660 mls/hr IV ONETIME PRN PRN Reason: Bleeding Oxytocin/Sodium Chloride (Oxytocin 30 Unit/500 Ml-Ns) 30 unit in 500 mls @ 2 mls/hr IV TITRATE JOHNATHAN; Protocol Lidocaine HCl (Xylocaine 1%) 50 ml INJECT ONETIME PRN PRN Reason: Laceration repair Methylergonovine Maleate (Methergine) 0.2 mg IM ASDIRECTED PRN PRN Reason: Post Hemorrhage Misoprostol (Cytotec) 200 mcg PO ONETIME PRN PRN Reason: Post Hemorrhage Misoprostol (Cytotec) 25 mcg VAG Q4H PRN PRN Reason: Cervical Ripening Last Admin: 04/02/19 06:30 Dose: 25 mcg Admin: 04/02/19 02:10 Dose: 25 mcg Misoprostol (Cytotec) 25 mcg PO Q4H JOHNATHAN Nalbuphine HCl (Nubain) 10 mg IVPUSH Q1H PRN PRN Reason: Pain (severe 7-10) Ondansetron HCl (Zofran) 4 mg IVPUSH Q4H PRN PRN Reason: Nausea/Vomiting Sodium Chloride (Saline Flush) 10 ml FLUSH ASDIRECTED PRN PRN Reason: Keep Vein Open Sodium Chloride (Saline Flush) 2.5 ml FLUSH ASDIRECTED PRN PRN Reason: Keep Vein Open Sodium Chloride (Normal Saline) 10 ml IV ASDIRECTED PRN PRN Reason: IV Use Sterile Water (Sterile Water For Irrigation) 1,000 ml IRR ASDIRECTED PRN PRN Reason: delivery Terbutaline Sulfate (Brethine) 0.25 mg SUBCUT ASDIRECTED PRN PRN Reason: Tacysystole Assessment/Plan Comment:: IOL A: 23yo EDC 04/15/2019 38 1/7wks, IOL for IUGR, A neg, RI, GBS neg. SVE /0 soft mid, AROM clear. Desires epidural P: Admit, cytotec, epidural now, anticipate . Dr Ramirez updated.
[2019-04-02] MEDS ORDERED: Misoprostol 25 MCG (1/4 of 100 MCG) Tab PO SCH (10:30)
[2019-04-02] MEDS ORDERED: fentaNYL 100 MCG/2 ML SDV ONE (11:16)
[2019-04-02] MEDS ORDERED: Bupivacaine 0.25% 10 ML SDV ONE (11:17)
--- NOTE | 2019-04-02 11:45 | PCM.PREANE ---
Preanesthetic Assessment - Anesthesia/Transfusion/Family Hx Anesthesia History: Prior Anesthesia Without Reaction Other Type of Anesthesia Reaction Comment: DENIES PROBLEMS WITH ANESTHESIA Transfusion History: No Prior Transfusion(s) - Review of Systems General: No Symptoms Pulmonary: No Symptoms Cardiovascular: No Symptoms Gastrointestinal: No Symptoms Neurological: No Symptoms Other: Reports: None - Physical Assessment Height: 1.68 m Weight: 65.771 kg ASA Class: 2 Mental Status: Alert & Oriented x3 Dentition: Reports: Normal Dentition ROM/Head Extension: Full Lungs: Clear to Auscultation, Normal Respiratory Effort Cardiovascular: Regular Rate, Regular Rhythm - Lab Values: Laboratory Last Values WBC 8.79 K/uL (4.0-11.0) 04/02/19 01:04 RBC 3.44 M/uL (4.30-5.90) L 04/02/19 01:04 Hgb 11.3 g/dL (12.0-16.0) L 04/02/19 01:04 Hct 32.8 % (36.0-46.0) L 04/02/19 01:04 MCV 95.3 fL (80.0-98.0) 04/02/19 01:04 MCH 32.8 pg (27.0-32.0) H 04/02/19 01:04 MCHC 34.5 g/dL (31.0-37.0) 04/02/19 01:04 RDW Std Deviation 42.0 fl (28.0-62.0) 04/02/19 01:04 RDW Coeff of Wanda 13 % (11.0-15.0) 04/02/19 01:04 Plt Count 171 K/uL (150-400) 04/02/19 01:04 MPV 10.20 fL (7.40-12.00) 04/02/19 01:04 Blood Type A NEGATIVE 04/02/19 01:04 Antibody Screen NEGATIVE 04/02/19 01:04 - Allergies Allergies/Adverse Reactions: Allergies Allergy/AdvReac Type Severity Reaction Status Date / Time oxycodone [Oxycodone] Allergy Jaundice Verified 04/02/19 02:56 pumpkin Allergy Mouth Sores Verified 03/29/15 11:06 - Acknowledgements Anesthesia Type Planned: Epidural Pt an Appropriate Candidate for the Planned Anesthesia: Yes Alternatives and Risks of Anesthesia Discussed w Pt/Guardian: Yes Pt/Guardian Understands and Agrees with Anesthesia Plan: Yes PreAnesthesia Questionnaire - Past Health History Medical/Surgical History: Denies Medical/Surgical History 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: Reports: 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 , Psychiatric History: Reports: ADHD, Anxiety, Depression - Infectious Disease History Infectious Disease History: Reports: Hepatitis B - Past Surgical History Other HEENT Surgeries/Procedures: hx of PE tube placement and T&A Respiratory Surgical History: Reports: None - SUBSTANCE USE Smoking Status *Q: Never Smoker Recreational Drug Use History: No - HOME MEDS Home Medications: Home Meds Ferrous Sulfate [Iron] 1 tab PO ASDIRECTED 03/29/15 [History] Magnesium 1 tab PO DAILY 03/29/15 [History] Multivitamin [Multivitamins] 1 tab PO DAILY 03/29/15 [History] Protein Supplement [Procel] 1 packet PO DAILY 03/29/15 [History] - CURRENT (IN HOUSE) MEDS Current Meds: Current Medications Butorphanol Tartrate (Stadol) 1 mg IVPUSH Q1H PRN PRN Reason: Pain Carboprost Tromethamine (Hemabate Ds) 250 mcg IM ASDIRECTED PRN PRN Reason: Post Hemorrhage Lactated Ringer's (Ringers, Lactated) 1,000 mls @ 150 mls/hr IV ASDIRECTED JOHNATHAN Last Admin: 04/02/19 11:20 Dose: 999 mls/hr Oxytocin/Sodium Chloride (Oxytocin 30 Unit/500 Ml-Ns) 30 unit in 500 mls @ 500 mls/hr IV TITRATE JOHNATHAN Tranexamic Acid 1,000 mg/ (Sodium Chloride) 110 mls @ 660 mls/hr IV ONETIME PRN PRN Reason: Bleeding Oxytocin/Sodium Chloride (Oxytocin 30 Unit/500 Ml-Ns) 30 unit in 500 mls @ 2 mls/hr IV TITRATE JOHNATHAN; Protocol Lidocaine HCl (Xylocaine 1%) 50 ml INJECT ONETIME PRN PRN Reason: Laceration repair Methylergonovine Maleate (Methergine) 0.2 mg IM ASDIRECTED PRN PRN Reason: Post Hemorrhage Misoprostol (Cytotec) 200 mcg PO ONETIME PRN PRN Reason: Post Hemorrhage Misoprostol (Cytotec) 25 mcg VAG Q4H PRN PRN Reason: Cervical Ripening Last Admin: 04/02/19 06:30 Dose: 25 mcg Misoprostol (Cytotec) 25 mcg PO Q4H JOHNATHAN Nalbuphine HCl (Nubain) 10 mg IVPUSH Q1H PRN PRN Reason: Pain (severe 7-10) Ondansetron HCl (Zofran) 4 mg IVPUSH Q4H PRN PRN Reason: Nausea/Vomiting Sodium Chloride (Saline Flush) 10 ml FLUSH ASDIRECTED PRN PRN Reason: Keep Vein Open Sodium Chloride (Saline Flush) 2.5 ml FLUSH ASDIRECTED PRN PRN Reason: Keep Vein Open Sodium Chloride (Normal Saline) 10 ml IV ASDIRECTED PRN PRN Reason: IV Use Sterile Water (Sterile Water For Irrigation) 1,000 ml IRR ASDIRECTED PRN PRN Reason: delivery Terbutaline Sulfate (Brethine) 0.25 mg SUBCUT ASDIRECTED PRN PRN Reason: Tacysystole Discontinued Medications Bupivacaine HCl (Sensorcaine-Mpf 0.25%) Confirm Administered Dose 10 ml .ROUTE .STK-MED ONE Stop: 04/02/19 11:18 Fentanyl (Sublimaze) Confirm Administered Dose 100 mcg .ROUTE .STK-MED ONE Stop: 04/02/19 11:17 Fentanyl/Bupivacaine HCl (Qydrgued-Puzji-Rg 2 Mcg/Ml-0.125%) Confirm Administered Dose 100 mls @ as directed .ROUTE .STK-MED ONE Stop: 04/02/19 11:18 Misoprostol (Cytotec) 25 mcg VAG ONETIME PRN PRN Reason: Cervical Ripening Misoprostol (Cytotec) 25 mcg PO ONETIME ONE Stop: 04/02/19 00:54 Last Admin: 04/02/19 02:10 Dose: 25 mcg Misoprostol (Cytotec) 25 mcg PO ONETIME ONE Stop: 04/02/19 06:19 Last Admin: 04/02/19 06:30 Dose: 25 mcg
[2019-04-02] MEDS ORDERED: Bisacodyl 10 MG Supp RECTAL PRN (12:23)
[2019-04-02] MEDS ORDERED: Lanolin 100% Cream 7 GM Tube TOP PRN (12:23)
[2019-04-02] MEDS ORDERED: Ibuprofen 800 MG Tab PO PRN (12:23)
[2019-04-02] MEDS ORDERED: Acetaminophen 500 MG Tab PO PRN ×2 (12:23)
[2019-04-02] MEDS ORDERED: Docusate Sodium 100 MG Cap PO PRN (12:23)
[2019-04-02] MEDS ORDERED: Benzocaine/Menthol 20%-0.5% Spray 78 GM Cannister TOP PRN (12:23)
[2019-04-02] MEDS ORDERED: Witch Hazel Medicated Pads 40/Jar TOP PRN (12:23)
[2019-04-02] MEDS ORDERED: Ibuprofen 400 MG Tab PO PRN (12:23)
--- NOTE | 2019-04-02 12:31 | PCM.DEL ---
L & D Note - General Info Date of Service: 04/02/19 Mother's Due Date: 04/15/19 - Delivery Note Labor: Induced by ARM Cervical Ripening Method: Misoprostil Delivery Outcome: Livebirth Delivery Method: Spontaneous Vaginal Delivery-Single Presentation: Vertex Nuchal Cord: Present (nuchal x2 reduced one and del through other) Anesthesia Type: Epidural Amniotic Fluid Description: Clear Episiotomy Type: None Laceration: None Placenta: Intact, Spontaneous Cord: 3 Vessels Resuscitation Needed: No Score 1 min: 8 Score 5 min: 9 Second Stage Interventions: Reports: Pushing, Pulls Own Legs Back Delivery Comments (Free Text/Narrative):: of viable female. Head delivered with good pushing, nuchal noted and reduced over head for one and delivered through the other. Infant placed on mothers abdomen with spont cry. Rn at for evaluation. Delayed cord clamping. Pitocin to IVF. Cord clamped and cut by FOB. Cord blood collected. Placenta delivered grossly intact. 3VC. Bimanual normal. Inspection noted intact perineum. EBL 100cc. APGARS 8/9, Wt: 5lb 7oz. Mom and baby left in recovery in stable condition. Induction Criteria - Schmitz Score Schmitz Score Dilation: 1-2 cm Schmitz Score Effacement: 60-70% Schmitz Score 's Station: -2 Schmitz Score Consistency: Soft Schmitz Score Cervix Position: Midposition Schmitz Score Total: 7 Schmitz Score Presenting Part: Reports: Cephalic - Induction Gestational Age >/= 39 wks: No Medical Indication: IUGR at 38 1/7. IOL due to MFM recommendation. Reassuring Monitoring Strip: Yes Absence of Tachy Systole: Yes - General Info Date of Service: 04/02/19 Admission Dx/Problem (Free Text): Patient Status Order with Admit Dx/Problem 04/02/19 00:15 Patient Status [ADT] Routine Admission Diagnosis/Problem Admission Diagnosis/Problem 04/02/19 10:23 23yo EDC 04/15/2019 38 1/7wks, IOL for IUGR, A neg, RI, GBS neg. Functional Status: Reports: Pain Controlled - Review of Systems General: Reports: No Symptoms HEENT: Reports: No Symptoms Pulmonary: Reports: No Symptoms Cardiovascular: Reports: No Symptoms Gastrointestinal: Reports: No Symptoms Genitourinary: Reports: No Symptoms Musculoskeletal: Reports: No Symptoms Skin: Reports: No Symptoms Neurological: Reports: No Symptoms Psychiatric: Reports: No Symptoms - Patient Data Weight - Most Recent: 65.771 kg Lab Results Last 24 Hours: Laboratory Results - last 24 hr 04/02/19 04/02/19 Range/Units 01:04 01:04 WBC 8.79 (4.0-11.0) K/uL RBC 3.44 L (4.30-5.90) M/uL Hgb 11.3 L (12.0-16.0) g/dL Hct 32.8 L (36.0-46.0) % MCV 95.3 (80.0-98.0) fL MCH 32.8 H (27.0-32.0) pg MCHC 34.5 (31.0-37.0) g/dL RDW Std Deviation 42.0 (28.0-62.0) fl RDW Coeff of Wanda 13 (11.0-15.0) % Plt Count 171 (150-400) K/uL MPV 10.20 (7.40-12.00) fL Blood Type A NEGATIVE Antibody Screen NEGATIVE Med Orders - Current: Current Medications Acetaminophen (Tylenol Extra Strength) 500 mg PO Q4H PRN PRN Reason: Pain Acetaminophen (Tylenol Extra Strength) 1,000 mg PO Q4H PRN PRN Reason: Pain Benzocaine/Menthol (Dermoplast Pain Relief 20%-0.5% [place]) 78 gm TOP ASDIRECTED PRN PRN Reason: Perineal Comfort Measure Bisacodyl (Dulcolax) 10 mg RECTAL ONETIME PRN PRN Reason: Constipation Docusate Sodium (Colace) 100 mg PO BID PRN PRN Reason: Constipation Emollient Ointment (Lansinoh Hpa) 0 gm TOP ASDIRECTED PRN PRN Reason: Sore Nipples Ibuprofen (Motrin) 400 mg PO Q4H PRN PRN Reason: Pain Ibuprofen (Motrin) 800 mg PO Q6H PRN PRN Reason: Pain Witch Carmencita (Tucks) 1 pad TOP ASDIRECTED PRN PRN Reason: comfort care Discontinued Medications Bupivacaine HCl (Sensorcaine-Mpf 0.25%) Confirm Administered Dose 10 ml .ROUTE .STK-MED ONE Stop: 04/02/19 11:18 Butorphanol Tartrate (Stadol) 1 mg IVPUSH Q1H PRN PRN Reason: Pain Carboprost Tromethamine (Hemabate Ds) 250 mcg IM ASDIRECTED PRN PRN Reason: Post Hemorrhage Fentanyl (Sublimaze) Confirm Administered Dose 100 mcg .ROUTE .ST-MED ONE Stop: 04/02/19 11:17 Lactated Ringer's (Ringers, Lactated) 1,000 mls @ 150 mls/hr IV ASDIRECTED JOHNATHAN Last Admin: 04/02/19 11:20 Dose: 999 mls/hr Oxytocin/Sodium Chloride (Oxytocin 30 Unit/500 Ml-Ns) 30 unit in 500 mls @ 500 mls/hr IV TITRATE [facility] Last Admin: 04/02/19 12:15 Dose: 500 mls/hr Tranexamic Acid 1,000 mg/ (Sodium Chloride) 110 mls @ 660 mls/hr IV ONETIME PRN PRN Reason: Bleeding Oxytocin/Sodium Chloride (Oxytocin 30 Unit/500 Ml-Ns) 30 unit in 500 mls @ 2 mls/hr IV TITRATE [facility]; Protocol Fentanyl/Bupivacaine HCl (Uopqnirp-Dlwef-Rl 2 Mcg/Ml-0.125%) Confirm Administered Dose 100 mls @ as directed [facility] Stop: 04/02/19 11:18 Lidocaine HCl (Xylocaine 1%) 50 ml INJECT ONETIME PRN PRN Reason: Laceration repair Methylergonovine Maleate (Methergine) 0.2 mg IM ASDIRECTED PRN PRN Reason: Post Hemorrhage Misoprostol (Cytotec) 200 mcg PO ONETIME PRN PRN Reason: Post Hemorrhage Misoprostol (Cytotec) 25 mcg VAG ONETIME PRN PRN Reason: Cervical Ripening Misoprostol (Cytotec) 25 mcg VAG Q4H PRN PRN Reason: Cervical Ripening Last Admin: 04/02/19 06:30 Dose: 25 mcg Misoprostol (Cytotec) 25 mcg PO ONETIME ONE Stop: 04/02/19 00:54 Last Admin: 04/02/19 02:10 Dose: 25 mcg Misoprostol (Cytotec) 25 mcg PO ONETIME ONE Stop: 04/02/19 06:19 Last Admin: 11/02/19 06:30 Dose: 25 mcg Misoprostol (Cytotec) 25 mcg PO Q4H JOHNATHAN Nalbuphine HCl (Nubain) 10 mg IVPUSH Q1H PRN PRN Reason: Pain (severe 7-10) Ondansetron HCl (Zofran) 4 mg IVPUSH Q4H PRN PRN Reason: Nausea/Vomiting Sodium Chloride (Saline Flush) 10 ml FLUSH ASDIRECTED PRN PRN Reason: Keep Vein Open Sodium Chloride (Saline Flush) 2.5 ml FLUSH ASDIRECTED PRN PRN Reason: Keep Vein Open Sodium Chloride (Normal Saline) 10 ml IV ASDIRECTED PRN PRN Reason: IV Use Sterile Water (Sterile Water For Irrigation) 1,000 ml IRR ASDIRECTED PRN PRN Reason: delivery Terbutaline Sulfate (Brethine) 0.25 mg SUBCUT ASDIRECTED PRN PRN Reason: Tacysystole - Exam General: Alert, Oriented, Cooperative, No Acute Distress Lungs: Normal Respiratory Effort GI/Abdominal Exam: Soft, Non-Tender, Pelvis Stable (Female) Exam: Normal External Exam, Normal Bimanual Exam, Vaginal Bleeding. No: Vaginal Lesions, Vaginal Tears Back Exam: Normal Inspection, Full Range of Motion Extremities: Normal Inspection, Normal Range of Motion, Non-Tender, No Pedal Edema Skin: Warm, Dry, Intact Neurological: No New Focal Deficit, Normal Speech, Normal Tone Psy/Mental Status: Alert, Normal Affect, Normal Mood - Problem List & Annotations (1) Supervision of normal IUP (intrauterine ) in multigravida SNOMED Code(s): 264393134, 144768146, 332388467 Code(s): Z34.80 - ENCOUNTER FOR SUPRVSN OF NORMAL , UNSP TRIMESTER Status: Acute Priority: High Current Visit: Yes Qualifiers: Trimester: third trimester Qualified Code(s): Z34.83 - Encounter for supervision of other normal , third trimester (2) (normal spontaneous vaginal delivery) SNOMED Code(s): 75115995, 187603195 Code(s): O80 - ENCOUNTER FOR FULL-TERM UNCOMPLICATED DELIVERY Status: Acute Priority: High Current Visit: Yes (3) IUGR (intrauterine growth restriction) SNOMED Code(s): 00409531 Code(s): OWD9436 - Status: Acute Priority: High Current Visit: Yes - Problem List Review Problem List Initiated/Reviewed/Updated: Yes - My Orders Last 24 Hours: My Active Orders 04/02/19 00:46 Vital Signs [RC] PER UNIT ROUTINE 04/02/19 01:04 RAPID PLASMA REAGIN, QUANT [REF] Routine 04/02/19 12:23 Acetaminophen [Tylenol Extra Strength] 1,000 mg PO Q4H PRN Acetaminophen [Tylenol Extra Strength] 500 mg PO Q4H PRN Benzocaine/Menthol [Dermoplast Pain Relief 20%-0.5% [place]] 78 gm TOP ASDIRECTED PRN Bisacodyl [Dulcolax] 10 mg RECTAL ONETIME PRN Docusate Sodium [Colace] 100 mg PO BID PRN Ibuprofen [Motrin] 400 mg PO Q4H PRN Ibuprofen [Motrin] 800 mg PO Q6H PRN Lanolin [Lansinoh HPA] See Dose Instructions TOP ASDIRECTED PRN Witch Cramencita [Tucks] 1 pad TOP ASDIRECTED PRN Resuscitation Status Routine 04/02/19 12:24 May Shower [RC] ASDIRECTED Up ad Jess [RC] ASDIRECTED Vital Signs [RC] PER UNIT ROUTINE Assess Lochia [WOMSER] Per Unit Routine Assess Uterine Involution [WOMSER] Per Unit Routine Peripheral IV Discontinue [OM.PC] Routine 04/02/19 12:25 Patient Status [ADT] Routine 04/02/19 Lunch Regular Diet [DIET] - Plan Plan:: IOL A: 23yo EDC 04/15/2019 38 1/7wks, IOL for IUGR, A neg, RI, GBS neg. SVE 90/0 soft mid, AROM clear. Desires epidural P: Admit, cytotec, epidural now, anticipate . Dr Ramirez updated. Delivery A: of viable female. APGARS 8/9, Wt: 5lb 7oz, EBL 100cc, intact. Mom and baby stable P: Routine pp plan of care
--- NOTE | 2019-04-03 06:06 | PCM48HPAN ---
Post Anesthesia Note - EVALUATION WITHIN 48HRS OF ANESTHETIC Vital Signs in Normal Range: Yes Patient Participated in Evaluation: Yes Respiratory Function Stable: Yes Airway Patent: Yes Cardiovascular Function Stable: Yes Hydration Status Stable: Yes Pain Control Satisfactory: Yes Nausea and Vomiting Control Satisfactory: Yes Mental Status Recovered: Yes Vital Signs: Last Vital Signs Temp 36.7 C 04/02/19 21:40 Pulse 78 04/02/19 21:40 Resp 18 04/02/19 21:40 BP 103/59 L 04/02/19 21:40 Pulse Ox 96 04/02/19 21:40
--- NOTE | 2019-04-03 08:20 | PCM.DCSUM1 ---
Discharge Summary - Hospital Course Free Text/Narrative:: Discharge home with infant. Follow up in 6 weeks for . Diagnosis: Stroke: No Modified [place] Scale: No Symptoms at All Modified [place] Scale Score: 0 - Discharge Data Discharge Date: 04/03/19 Discharge Disposition: Home, Self-Care 01 Condition: Good - Referral to Home Health Primary Care Physician: PCP None - Discharge Diagnosis/Problem(s) (1) Supervision of normal IUP (intrauterine ) in multigravida SNOMED Code(s): 257655276, 428277474, 275344008 ICD Code: Z34.80 - ENCOUNTER FOR SUPRVSN OF NORMAL , UNSP TRIMESTER Status: Acute Priority: High Current Visit: Yes Qualifiers: Trimester: third trimester Qualified Code(s): Z34.83 - Encounter for supervision of other normal , third trimester (2) (normal spontaneous vaginal delivery) SNOMED Code(s): 92005453, 194603545 ICD Code: O80 - ENCOUNTER FOR FULL-TERM UNCOMPLICATED DELIVERY Status: Acute Priority: High Current Visit: Yes (3) IUGR (intrauterine growth restriction) SNOMED Code(s): 54712750 ICD Code: [id number] - Status: Acute Priority: High Current Visit: Yes - Patient Instructions Diet: Usual Diet as Tolerated Activity: As Tolerated, No Strenuous Activities, Rest and Relax Today Driving: May Drive Today Showering/Bathing: May Shower Notify Provider of: Fever, Increased Pain, Swelling and Redness, Nausea and/or Vomiting Other/Special Instructions: Discharge home with infant. Follow up in 6 weeks for . - Discharge Plan *PRESCRIPTION DRUG MONITORING PROGRAM REVIEWED*: Not Applicable *COPY OF PRESCRIPTION DRUG MONITORING REPORT IN PATIENT STEPHANIA: Not Applicable Prescriptions/Med Rec: Ibuprofen [Motrin] 800 mg PO Q6H PRN #90 tablet PRN Reason: Pain Home Medications: Home Meds Ferrous Sulfate [Iron] 1 tab PO ASDIRECTED 03/29/15 [History] Magnesium 1 tab PO DAILY 03/29/15 [History] Multivitamin [Multivitamins] 1 tab PO DAILY 03/29/15 [History] Protein Supplement [Procel] 1 packet PO DAILY 03/29/15 [History] Ibuprofen [Motrin] 800 mg PO Q6H PRN #90 tablet 04/03/19 [Rx] - Discharge Summary/Plan Comment DC Time >30 min.: Yes - General Info Date of Service: 04/03/19 Admission Dx/Problem (Free Text: Patient Status Order with Admit Dx/Problem 04/02/19 00:15 Patient Status [ADT] Routine Admission Diagnosis/Problem Admission Diagnosis/Problem 04/02/19 10:23 23yo EDC 04/15/2019 38 1/7wks, IOL for IUGR, A neg, RI, GBS neg. Functional Status: Reports: Pain Controlled, Tolerating Diet, Ambulating, Urinating - Review of Systems General: Reports: No Symptoms HEENT: Reports: No Symptoms Pulmonary: Reports: No Symptoms Cardiovascular: Reports: No Symptoms Gastrointestinal: Reports: No Symptoms Genitourinary: Reports: No Symptoms Musculoskeletal: Reports: No Symptoms Skin: Reports: No Symptoms Neurological: Reports: No Symptoms Psychiatric: Reports: No Symptoms - Patient Data Vitals - Most Recent: Last Vital Signs Temp 36.7 C 04/02/19 21:40 Pulse 78 04/02/19 21:40 Resp 18 04/02/19 21:40 BP 103/59 L 04/02/19 21:40 Pulse Ox 96 04/02/19 21:40 Weight - Most Recent: 65.771 kg Med Orders - Current: Current Medications Acetaminophen (Tylenol Extra Strength) 500 mg PO Q4H PRN PRN Reason: Pain Acetaminophen (Tylenol Extra Strength) 1,000 mg PO Q4H PRN PRN Reason: Pain Last Admin: 04/02/19 14:08 Dose: 1,000 mg Benzocaine/Menthol (Dermoplast Pain Relief 20%-0.5% Maple) 78 gm TOP ASDIRECTED PRN PRN Reason: Perineal Comfort Measure Last Admin: 04/02/19 14:11 Dose: 78 gm Bisacodyl (Dulcolax) 10 mg RECTAL ONETIME PRN PRN Reason: Constipation Docusate Sodium (Colace) 100 mg PO BID PRN PRN Reason: Constipation Last Admin: 04/02/19 14:10 Dose: 100 mg Emollient Ointment (Lansinoh Hpa) 0 gm TOP ASDIRECTED PRN PRN Reason: Sore Nipples Ibuprofen (Motrin) 400 mg PO Q4H PRN PRN Reason: Pain Ibuprofen (Motrin) 800 mg PO Q6H PRN PRN Reason: Pain Last Admin: 04/02/19 14:09 Dose: 800 mg Witch Carmencita (Tucks) 1 pad TOP ASDIRECTED PRN PRN Reason: comfort care Last Admin: 04/02/19 14:11 Dose: 1 tub Discontinued Medications Bupivacaine HCl (Sensorcaine-Mpf 0.25%) Confirm Administered Dose 10 ml .ROUTE .STK-MED ONE Stop: 04/02/19 11:18 Butorphanol Tartrate (Stadol) 1 mg IVPUSH Q1H PRN PRN Reason: Pain Carboprost Tromethamine (Hemabate Ds) 250 mcg IM ASDIRECTED PRN PRN Reason: Post Hemorrhage Fentanyl (Sublimaze) Confirm Administered Dose 100 mcg .ROUTE .STK-MED ONE Stop: 04/02/19 11:17 Lactated Ringer's (Ringers, Lactated) 1,000 mls @ 150 mls/hr IV ASDIRECTED JOHNATHAN Last Infusion: 04/02/19 12:10 Dose: 0 mls/hr Oxytocin/Sodium Chloride (Oxytocin 30 Unit/500 Ml-Ns) 30 unit in 500 mls @ 500 mls/hr IV TITRATE JOHNATHAN Last Admin: 04/02/19 12:15 Dose: 500 mls/hr Tranexamic Acid 1,000 mg/ (Sodium Chloride) 110 mls @ 660 mls/hr IV ONETIME PRN PRN Reason: Bleeding Oxytocin/Sodium Chloride (Oxytocin 30 Unit/500 Ml-Ns) 30 unit in 500 mls @ 2 mls/hr IV TITRATE JOHNATHAN; Protocol Fentanyl/Bupivacaine HCl (Dblpiceg-Eqcpq-Qe 2 Mcg/Ml-0.125%) Confirm Administered Dose 100 mls @ as directed .ROUTE .STK-MED ONE Stop: 04/02/19 11:18 Lidocaine HCl (Xylocaine 1%) 50 ml INJECT ONETIME PRN PRN Reason: Laceration repair Methylergonovine Maleate (Methergine) 0.2 mg IM ASDIRECTED PRN PRN Reason: Post Hemorrhage Misoprostol (Cytotec) 200 mcg PO ONETIME PRN PRN Reason: Post Hemorrhage Misoprostol (Cytotec) 25 mcg VAG ONETIME PRN PRN Reason: Cervical Ripening Misoprostol (Cytotec) 25 mcg VAG Q4H PRN PRN Reason: Cervical Ripening Last Admin: 04/02/19 06:30 Dose: 25 mcg Misoprostol (Cytotec) 25 mcg PO ONETIME ONE Stop: 04/02/19 00:54 Last Admin: 04/02/19 02:10 Dose: 25 mcg Misoprostol (Cytotec) 25 mcg PO ONETIME ONE Stop: 04/02/19 06:19 Last Admin: 04/02/19 06:30 Dose: 25 mcg Misoprostol (Cytotec) 25 mcg PO Q4H JOHNATHAN Nalbuphine HCl (Nubain) 10 mg IVPUSH Q1H PRN PRN Reason: Pain (severe 7-10) Ondansetron HCl (Zofran) 4 mg IVPUSH Q4H PRN PRN Reason: Nausea/Vomiting Sodium Chloride (Saline Flush) 10 ml FLUSH ASDIRECTED PRN PRN Reason: Keep Vein Open Sodium Chloride (Saline Flush) 2.5 ml FLUSH ASDIRECTED PRN PRN Reason: Keep Vein Open Sodium Chloride (Normal Saline) 10 ml IV ASDIRECTED PRN PRN Reason: IV Use Sterile Water (Sterile Water For Irrigation) 1,000 ml IRR ASDIRECTED PRN PRN Reason: delivery Terbutaline Sulfate (Brethine) 0.25 mg SUBCUT ASDIRECTED PRN PRN Reason: Tacysystole - Exam General: Reports: Alert, Oriented, Cooperative, No Acute Distress Lungs: Reports: Normal Respiratory Effort GI/Abdominal Exam: Soft, Non-Tender, Pelvis Stable (Female) Exam: Deferred, Vaginal Bleeding Rectal (Female) Exam: Deferred Back Exam: Reports: Normal Inspection, Full Range of Motion Extremities: Normal Inspection, Normal Range of Motion, Non-Tender, No Pedal Edema Skin: Reports: Warm, Dry, Intact Neurological: Reports: No New Focal Deficit, Normal Speech, Normal Tone, Strength Equal Bilateral, Sensation Intact Psy/Mental Status: Reports: Alert, Normal Affect, Normal Mood
[2019-04-03 08:57] VITALS: BP 110/67; PULSE 70
== END 2019-04-03 15:15 | disposition home or self-care (01) | DRG 807 ==
LOC: MW.OB 00:18 → OBSVTOIN 12:25 → MW.OB 15:40
PROVIDERS: ADMIT Obstetrics & Gynecology; ATTEND Obstetrics & Gynecology
PROC: 10E0XZZ Delivery of Products of Conception, External Approach (ICD-10-PCS; principal; 2019-04-02)
PROC: 10907ZC Drainage of Amniotic Fluid, Therapeutic from Products of Conception, Via Natural or Artificial Opening (ICD-10-PCS; 2019-04-02)
PROC: 3E0P7VZ Introduction of Hormone into Female Reproductive, Via Natural or Artificial Opening (ICD-10-PCS; 2019-04-02)
PROC: 3E0R3BZ Introduction of Anesthetic Agent into Spinal Canal, Percutaneous Approach (ICD-10-PCS; 2019-04-02)
DX: O36.5930 Maternal care for other known or suspected poor fetal growth, third trimester, not applicable or unspecified (principal); Z37.0 Single live birth; O69.81X0 Labor and delivery complicated by cord around neck, without compression, not applicable or unspecified; Z3A.38 38 weeks gestation of pregnancy; Z88.5 Allergy status to narcotic agent; Z91.018 Allergy to other foods
CPT/HCPCS: 01967; 36415; 51702; 59025; 59409; 85027; 86593; 86850; 86900; 86901; A9270-GY; J2590; J7120

== ENCOUNTER 2022-10-09 11:53 | Emergency (ER) | payer OTHER ==
[2022-10-09 12:50] LABS: BASOPHILS PERCENT AUTO 0.4 % (0.0-1.5); EOSINOPHILS ABSOLUTE AUTO 0.2 K/uL (0.0-0.7); EOSINOPHILS PERCENT AUTO 2.3 % (0.0-7.0); HEMATOCRIT 32.2 % (36.0-46.0); HEMOGLOBIN 10.7 g/dL (12.0-16.0); LYMPHOCYTES ABSOLUTE AUTO 1.9 K/uL (0.6-2.4); LYMPHOCYTES PERCENT AUTO 25.2 % (16.0-40.0); MEAN CORPUSCULAR HEMOGLOBIN 29.9 pg (27.0-32.0); MEAN CORPUSCULAR HGB CONC 33.2 g/dL (31.0-37.0); MEAN CORPUSCULAR VOLUME 89.9 fL (80.0-98.0); MONOCYTES ABSOLUTE AUTO 0.6 K/uL (0.0-0.8); MONOCYTES PERCENT AUTO 8.2 % (0.0-15.0); NEUTROPHILS ABSOLUTE AUTO 4.9 K/uL (1.4-5.7); NEUTROPHILS PERCENT AUTO 63.9 % (48.0-80.0); NRBC ABSOLUTE 0 K/uL; PLATELET COUNT,PLT 222 K/uL (150-400); RED BLOOD CELL COUNT 3.58 M/uL (4.30-5.90); WHITE BLOOD CELL COUNT,WBC 7.66 K/uL (4.0-11.0)
[2022-10-09 13:16] LABS: ALANINE AMINOTRANSFERASE,ALT 25 IU/L (14-63); ALBUMIN 3.7 g/dL (3.4-5.0); ALKALINE PHOSPHATASE 116 U/L (46-116); ASPARTATE AMNIOTRANSFERASE,AST 21 IU/L (15-37); BILIRUBIN TOTAL 0.9 mg/dL (0.2-1.0); BLOOD UREA NITROGEN,BUN 11 mg/dL (7.0-18.0); CALCIUM 9.5 mg/dL (8.5-10.1); CARBON DIOXIDE,CO2 26.6 mmol/L (21.0-32.0); CHLORIDE,CL 106 mmol/L (98-107); CREATININE 0.9 mg/dL (0.6-1.0); GLUCOSE RANDOM 90 mg/dL (74-106); POTASSIUM,K 4.8 mmol/L (3.5-5.1); PROTEIN TOTAL,TP 7.5 g/dL (6.4-8.2); SODIUM,NA 141 mmol/L (136-145)
[2022-10-09 13:20] LABS: ESTIMATED GFR 89 mL/min (>60)
[2022-10-09 14:40] LABS: BILIRUBIN,URINE NEGATIVE (NEGATIVE); COLOR,URINE YELLOW; GLUCOSE,URINE NEGATIVE (NEGATIVE); KETONES,URINE NEGATIVE (NEGATIVE); LEUKOCYTE ESTERASE,URINE SMALL (NEGATIVE); NITRITE,URINE NEGATIVE (NEGATIVE); OCCULT BLOOD,URINE LARGE (NEGATIVE); PH,URINE 6.5 (5.0-8.0); PROTEIN,URINE NEGATIVE (NEGATIVE); UROBILINOGEN,URINE 0.2 EU/dL (<2.0)
[2022-10-09 15:05] LABS: APPEARANCE,URINE SLT CLOUDY
[2022-10-09 15:06] LABS: BACTERIA,URINE FEW (NEGATIVE); EPITHELIAL CELLS,URINE FEW (NONE-FEW)
[2022-10-09 17:21] VITALS: BP 98/52; PULSE 92
== END 2022-10-09 17:22 | disposition home or self-care (01) ==
LOC: MW.ED 11:53
DX: O03.4 Incomplete spontaneous abortion without complication (principal); J45.909 Unspecified asthma, uncomplicated; Z88.5 Allergy status to narcotic agent; Z91.018 Allergy to other foods
CPT/HCPCS: 36415; 36430; 76817; 76817-26; 80053; 81001; 84702; 85025; 86850; 86900; 86901; 87086; 99283; 99284; J2790

== ENCOUNTER 2022-10-14 07:26 | Day surgery (SDC) | payer OTHER ==
[2022-10-14] MEDS ORDERED: Sodium Chloride 0.9% 1,000 ML IV ONE (07:40)
[2022-10-14] MEDS ORDERED: Ketorolac 30 MG/ML SDV IVPUSH ONE (07:41)
[2022-10-14] MEDS ORDERED: Ondansetron 4 MG/2 ML SDV IVPUSH ONE (07:41)
[2022-10-14] MEDS ORDERED: Acetaminophen 325 MG Tab PO ONE (07:41)
[2022-10-14] MEDS ORDERED: Ertapenem 1 GM in Sodium Chloride 0.9% 50 ML IV ONE (07:43)
[2022-10-14] MEDS ORDERED: Ketorolac 30 MG/ML SDV ONE (08:45)
[2022-10-14] MEDS ORDERED: Ondansetron 4 MG/2 ML SDV ONE ×2 (08:45→11:50)
[2022-10-14] MEDS ORDERED: Ertapenem 1 GM Vial ONE (08:46)
[2022-10-14 09:05] LABS: INR 1.08 (0.86-1.11); LACTIC ACID 2.6 mmol/L (0.4-2.0); PTT,PARTIAL THROMBOPLSTIN TIME 27.5 SEC (23.9-30.7)
[2022-10-14 09:07] LABS: BASOPHILS PERCENT AUTO 0.1 % (0.0-1.5); EOSINOPHILS ABSOLUTE AUTO 0.1 K/uL (0.0-0.7); HEMOGLOBIN 9.9 g/dL (12.0-16.0); LYMPHOCYTES ABSOLUTE AUTO 1.2 K/uL (0.6-2.4); LYMPHOCYTES PERCENT AUTO 15.3 % (16.0-40.0); MEAN CORPUSCULAR HEMOGLOBIN 30.5 pg (27.0-32.0); MEAN CORPUSCULAR VOLUME 92.3 fL (80.0-98.0); MONOCYTES ABSOLUTE AUTO 0.3 K/uL (0.0-0.8); MONOCYTES PERCENT AUTO 3.3 % (0.0-15.0); NEUTROPHILS ABSOLUTE AUTO 6.3 K/uL (1.4-5.7); NEUTROPHILS PERCENT AUTO 80.3 % (48.0-80.0); PLATELET COUNT,PLT 204 K/uL (150-400); RED BLOOD CELL COUNT 3.25 M/uL (4.30-5.90); WHITE BLOOD CELL COUNT,WBC 7.82 K/uL (4.0-11.0)
[2022-10-14 09:10] LABS: A/G RATIO 0.9 (0.9-1.6); ALBUMIN 3.4 g/dL (3.4-5.0); BILIRUBIN TOTAL 1.1 mg/dL (0.2-1.0); CALCIUM 8.8 mg/dL (8.5-10.1); CARBON DIOXIDE,CO2 21.5 mmol/L (21.0-32.0); CREATININE 1.4 mg/dL (0.6-1.0); EST CRCL DRUG DOSING (CG) 53.07 mL/min; POTASSIUM,K 3.2 mmol/L (3.5-5.1); PROTEIN TOTAL,TP 7.2 g/dL (6.4-8.2)
[2022-10-14] MEDS: Lactated Ringers 1,000 ML IV SCH ×2 (09:23→11:23)
[2022-10-14] MEDS ORDERED: Lidocaine 2% 11 ML Jelly Filled Syringe ONE (11:50)
[2022-10-14] MEDS ORDERED: Dexamethasone 4 MG/ML 5 ML MDV ONE (11:50)
[2022-10-14] MEDS ORDERED: fentaNYL 100 MCG/2 ML SDV ONE (11:50)
[2022-10-14] MEDS ORDERED: Propofol 200 MG/20 ML SDV ONE (11:50)
[2022-10-14] MEDS ORDERED: Lidocaine 2% 5 ML SDV ONE (11:50)
[2022-10-14] MEDS ORDERED: Phenylephrine HCl 0.5 MG/5 ML AMP ONE ×2 (12:18→12:26)
[2022-10-14] MEDS ORDERED: Methylergonovine 0.2 MG/1 ML Amp ONE (12:27)
[2022-10-14 14:19] VITALS: BP 90/52; PULSE 88
== END 2022-10-14 14:10 | disposition home or self-care (01) ==
LOC: MW.ED 07:26 → MW.SDS 10:14
PROVIDERS: ATTEND Obstetrics & Gynecology
DX: O03.9 Complete or unspecified spontaneous abortion without complication (principal); O73.1 Retained portions of placenta and membranes, without hemorrhage; R50.9 Fever, unspecified; J45.909 Unspecified asthma, uncomplicated; F90.9 Attention-deficit hyperactivity disorder, unspecified type; F41.9 Anxiety disorder, unspecified; F32.A Depression, unspecified; Z91.018 Allergy to other foods; Z88.5 Allergy status to narcotic agent; Z79.899 Other long term (current) drug therapy
CPT/HCPCS: 36415; 59812; 76830; 80053; 83605; 83690; 84702; 84703; 85025; 85610; 85730; 86850; 86900; 86901; 87040; 87070; 87077; 87154; 87186; 87205; 93005; 96361; 96365; 96375; 99285; A9270; J1100; J1335; J1885; J2210; J2370; J2405; J2704; J3010; J3490; J7030; J7120; 01965; 99291; 99292

== ENCOUNTER 2022-10-15 23:46 | Observation (INO) | payer OTHER ==
[2022-10-16] MEDS ORDERED: Sodium Chloride 0.9% 2.5 ML Syringe FLUSH PRN ×2 (00:03→09:20)
[2022-10-16] MEDS ORDERED: Sodium Chloride 0.9% 10 ML Syringe FLUSH PRN ×2 (00:03→09:20)
[2022-10-16] MEDS ORDERED: Sodium Chloride 0.9% 1,000 ML IV ONE (00:03)
[2022-10-16] MEDS: cefTRIAXone 2 GM in Sodium Chloride 0.9% 50 ML IV ONE ×2 (00:31→00:36)
[2022-10-16 00:39] LABS: BASOPHILS PERCENT AUTO 0.5 % (0.0-1.5); EOSINOPHILS ABSOLUTE AUTO 0.1 K/uL (0.0-0.7); EOSINOPHILS PERCENT AUTO 2.1 % (0.0-7.0); HEMATOCRIT 25.3 % (36.0-46.0); HEMOGLOBIN 8.1 g/dL (12.0-16.0); INR 1.02 (0.86-1.11); LYMPHOCYTES ABSOLUTE AUTO 1.8 K/uL (0.6-2.4); LYMPHOCYTES PERCENT AUTO 29.6 % (16.0-40.0); MEAN CORPUSCULAR HEMOGLOBIN 29.8 pg (27.0-32.0); MONOCYTES ABSOLUTE AUTO 0.5 K/uL (0.0-0.8); MONOCYTES PERCENT AUTO 8.1 % (0.0-15.0); NEUTROPHILS ABSOLUTE AUTO 3.7 K/uL (1.4-5.7); NEUTROPHILS PERCENT AUTO 59.7 % (48.0-80.0); NRBC ABSOLUTE 0 K/uL; PLATELET COUNT,PLT 164 K/uL (150-400); RED BLOOD CELL COUNT 2.72 M/uL (4.30-5.90); WHITE BLOOD CELL COUNT,WBC 6.21 K/uL (4.0-11.0)
[2022-10-16 00:56] LABS: BILIRUBIN,URINE NEGATIVE (NEGATIVE); COLOR,URINE YELLOW; GLUCOSE,URINE NEGATIVE (NEGATIVE); KETONES,URINE NEGATIVE (NEGATIVE); LEUKOCYTE ESTERASE,URINE SMALL (NEGATIVE); NITRITE,URINE NEGATIVE (NEGATIVE); OCCULT BLOOD,URINE LARGE (NEGATIVE); PH,URINE 5.5 (5.0-8.0); PROTEIN,URINE NEGATIVE (NEGATIVE); UROBILINOGEN,URINE 0.2 EU/dL (<2.0)
[2022-10-16 00:57] LABS: LACTIC ACID 1.7 mmol/L (0.4-2.0)
[2022-10-16 01:01] LABS: APPEARANCE,URINE HAZY
[2022-10-16 01:03] LABS: A/G RATIO 0.9 (0.9-1.6); ALBUMIN 2.9 g/dL (3.4-5.0); BILIRUBIN TOTAL 0.6 mg/dL (0.2-1.0); CALCIUM 8.3 mg/dL (8.5-10.1); CARBON DIOXIDE,CO2 24.3 mmol/L (21.0-32.0); CREATININE 1.1 mg/dL (0.6-1.0); EST CRCL DRUG DOSING (CG) 67.54 mL/min; POTASSIUM,K 3.5 mmol/L (3.5-5.1); PROTEIN TOTAL,TP 6.1 g/dL (6.4-8.2)
[2022-10-16 01:04] LABS: BACTERIA,URINE FEW (NEGATIVE); EPITHELIAL CELLS,URINE MODERATE (NONE-FEW); MUCUS,URINE LIGHT (NONE-MOD); RBC,URINE 15-20 (0-2/HPF)
[2022-10-16] MEDS: Meropenem 1 GM in Sodium Chloride 0.9% 100 ML IV SCH ×2 (01:25→09:05)
[2022-10-16] MEDS ORDERED: Acetaminophen 325 MG Tab PO PRN (03:00)
[2022-10-16] MEDS: NS + KCl 20mEq/L 1,000 ML IV SCH ×2 (03:13→16:20)
[2022-10-16 05:57] LABS: BASOPHILS PERCENT AUTO 0.3 % (0.0-1.5); EOSINOPHILS ABSOLUTE AUTO 0.2 K/uL (0.0-0.7); EOSINOPHILS PERCENT AUTO 2.7 % (0.0-7.0); HEMATOCRIT 21.7 % (36.0-46.0); LYMPHOCYTES ABSOLUTE AUTO 1.5 K/uL (0.6-2.4); LYMPHOCYTES PERCENT AUTO 24.3 % (16.0-40.0); MEAN CORPUSCULAR HEMOGLOBIN 29.8 pg (27.0-32.0); MEAN CORPUSCULAR HGB CONC 32.3 g/dL (31.0-37.0); MEAN CORPUSCULAR VOLUME 92.3 fL (80.0-98.0); MONOCYTES ABSOLUTE AUTO 0.4 K/uL (0.0-0.8); MONOCYTES PERCENT AUTO 6.6 % (0.0-15.0); NEUTROPHILS PERCENT AUTO 66.1 % (48.0-80.0); NRBC ABSOLUTE 0 K/uL; PLATELET COUNT,PLT 136 K/uL (150-400); RED BLOOD CELL COUNT 2.35 M/uL (4.30-5.90); WHITE BLOOD CELL COUNT,WBC 6.02 K/uL (4.0-11.0)
[2022-10-16 06:13] LABS: CALCIUM 7.4 mg/dL (8.5-10.1); CREATININE 0.9 mg/dL (0.6-1.0); EST CRCL DRUG DOSING (CG) 86.34 mL/min; POTASSIUM,K 3.8 mmol/L (3.5-5.1)
[2022-10-16] MEDS ORDERED: Ketorolac 30 MG/ML SDV IVPUSH ONE (09:48)
[2022-10-16] MEDS: Ondansetron 4 MG/2 ML SDV IVPUSH PRN (10:03)
[2022-10-16] MEDS: Cefepime 2 GM in Sodium Chloride 0.9% 50 ML IV SCH ×2 (10:03→17:31)
[2022-10-16] MEDS ORDERED: Acetaminophen/Butalbital/Caffeine 325-50-40 MG Tab PO PRN (19:31)
[2022-10-17] MEDS: Cefepime 2 GM in Sodium Chloride 0.9% 50 ML IV SCH (01:57)
[2022-10-17] MEDS: NS + KCl 20mEq/L 1,000 ML IV SCH (02:15)
[2022-10-17 06:16] LABS: BASOPHILS PERCENT AUTO 0.5 % (0.0-1.5); EOSINOPHILS ABSOLUTE AUTO 0.2 K/uL (0.0-0.7); HEMATOCRIT 23.2 % (36.0-46.0); HEMOGLOBIN 7.3 g/dL (12.0-16.0); LYMPHOCYTES ABSOLUTE AUTO 1.7 K/uL (0.6-2.4); MEAN CORPUSCULAR HGB CONC 31.5 g/dL (31.0-37.0); MEAN CORPUSCULAR VOLUME 92.1 fL (80.0-98.0); MONOCYTES ABSOLUTE AUTO 0.3 K/uL (0.0-0.8); MONOCYTES PERCENT AUTO 6.3 % (0.0-15.0); NEUTROPHILS ABSOLUTE AUTO 2.1 K/uL (1.4-5.7); NEUTROPHILS PERCENT AUTO 50.2 % (48.0-80.0); NRBC ABSOLUTE 0 K/uL; PLATELET COUNT,PLT 151 K/uL (150-400); RED BLOOD CELL COUNT 2.52 M/uL (4.30-5.90); WHITE BLOOD CELL COUNT,WBC 4.26 K/uL (4.0-11.0)
[2022-10-17 06:43] LABS: CARBON DIOXIDE,CO2 24.2 mmol/L (21.0-32.0); EST CRCL DRUG DOSING (CG) 77.71 mL/min; MAGNESIUM 1.9 mg/dL (1.8-2.4); POTASSIUM,K 4.4 mmol/L (3.5-5.1)
[2022-10-17] MEDS ORDERED: metroNIDAZOLE/Normal Saline 500 MG in Premix Bag 1 BAG IV SCH (08:48)
[2022-10-17] MEDS: Ondansetron 4 MG/2 ML SDV IVPUSH PRN (09:05)
[2022-10-17 13:49] VITALS: BP 108/71; PULSE 73
== END 2022-10-17 12:06 | disposition home or self-care (01) ==
LOC: MW.ED 23:46 → MW.MS 10-16 00:19
PROVIDERS: ADMIT Internal Medicine; ATTEND Internal Medicine
DX: R78.81 Bacteremia (principal); B96.6 Bacteroides fragilis [B. fragilis] as the cause of diseases classified elsewhere; D64.9 Anemia, unspecified; Z98.890 Other specified postprocedural states; Z79.899 Other long term (current) drug therapy; Z91.018 Allergy to other foods; Z90.49 Acquired absence of other specified parts of digestive tract
CPT/HCPCS: 36415; 80048; 80053; 81001; 83605; 83735; 85025; 85610; 87040; 96361; 96365; 96366; 96368; 96375; 96376; 99284; A9270; G0378; J0692; J1885; J2185; J2405; J3480; J3490; J7030; 96360; 99285; J0696

== ENCOUNTER 2024-05-26 00:16 | Inpatient (IN) | payer SELFPAY ==
[2024-05-26] MEDS ORDERED: Carboprost Tromethamine 250 MCG/1 mL Vial IM PRN (01:01)
[2024-05-26] MEDS ORDERED: Misoprostol 25 MCG (1/4 of 100 MCG) Tab VAG PRN (01:01)
[2024-05-26] MEDS ORDERED: Tranexamic Acid in NACL,ISO-OS 1,000 MG in Premix Bag 1 BAG IV PRN (01:01)
[2024-05-26] MEDS ORDERED: Terbutaline 1 MG/ML SDV SUBCUT PRN (01:01)
[2024-05-26] MEDS ORDERED: Water For Irrigation,Sterile 1,000 ML Container IRR PRN (01:01)
[2024-05-26] MEDS ORDERED: Sodium Chloride 0.9% 2.5 ML Syringe FLUSH PRN (01:01)
[2024-05-26] MEDS ORDERED: Butorphanol 2 MG/ML SDV IVPUSH PRN (01:01)
[2024-05-26] MEDS ORDERED: Misoprostol 200 MCG Tab PO PRN (01:01)
[2024-05-26] MEDS ORDERED: Lidocaine 1% 50 ML MDV INJECT PRN (01:01)
[2024-05-26] MEDS ORDERED: Methylergonovine 0.2 MG/1 ML Amp IM PRN (01:01)
[2024-05-26] MEDS ORDERED: Sodium Chloride 0.9% 10 ML Syringe FLUSH PRN (01:01)
[2024-05-26] MEDS ORDERED: Sodium Chloride 0.9% 20 ML SDV IV PRN (01:01)
[2024-05-26] MEDS ORDERED: Ondansetron 4 MG/2 ML SDV IVPUSH PRN (01:14)
[2024-05-26] MEDS ORDERED: Oxytocin/0.9 % Sodium Chloride 30 UNIT/500 ML BAG IV SCH (01:15)
[2024-05-26 01:39] LABS: HEMATOCRIT 32.9 % (37.0-47.0); HEMOGLOBIN 11.2 g/dL (12.0-16.0); MEAN CORPUSCULAR HEMOGLOBIN 29.6 pg (28.0-32.0); MEAN CORPUSCULAR VOLUME 86.8 fL (83.0-99.0); MEAN PLATELET VOLUME 10.2 fL (9.4-12.3); PLATELET COUNT,PLT 181 K/uL (150-400); RED BLOOD CELL COUNT 3.79 M/uL (4.10-5.30); WHITE BLOOD CELL COUNT,WBC 7.24 K/uL (3.9-11.3)
[2024-05-26] MEDS ORDERED: Misoprostol 25 MCG (1/4 of 100 MCG) Tab PO PRN ×2 (02:05→02:12)
[2024-05-26] MEDS: Lactated Ringers 1,000 ML IV ONE (02:31)
[2024-05-26] MEDS: Misoprostol 25 MCG (1/4 of 100 MCG) Tab VAG PRN (03:29)
[2024-05-26] MEDS: Misoprostol 25 MCG (1/4 of 100 MCG) Tab PO PRN (03:31)
[2024-05-26] MEDS ORDERED: Phenylephrine HCl In 0.9% NaCl 1 MG/10 ML Syringe IVPUSH PRN (07:22)
[2024-05-26] MEDS ORDERED: ePHEDrine 50 MG/ML SDV IVPUSH PRN (07:22)
[2024-05-26] MEDS ORDERED: dexmedeTOMIDine HCl 200 MCG/2 ML SDV EPIDUR SCH (07:30)
[2024-05-26] MEDS: Oxytocin/0.9 % Sodium Chloride 30 UNIT/500 ML BAG IV SCH ×2 (10:58→17:33)
[2024-05-26] MEDS: Ropivacaine HCl/PF 400 MG in Premix Bag 1 BAG EPIDUR SCH (12:32)
[2024-05-26] MEDS: Lactated Ringers 1,000 ML IV SCH (13:34)
[2024-05-26] MEDS ORDERED: Lanolin 100% Cream 7 GM Tube TOP PRN (19:12)
[2024-05-26] MEDS ORDERED: Acetaminophen 500 MG Tab PO PRN (19:12)
[2024-05-26] MEDS ORDERED: Docusate Sodium 100 MG Cap PO PRN (19:12)
[2024-05-26] MEDS: Ibuprofen 800 MG Tab PO PRN (21:24)
[2024-05-27] MEDS: Benzocaine/Menthol 20%-0.5% Spray 78 GM Cannister TOP PRN (04:10)
[2024-05-27] MEDS: Witch Hazel Medicated Pads 40/Jar TOP PRN (04:10)
[2024-05-27 05:38] LABS: HEMATOCRIT 32.3 % (37.0-47.0); HEMOGLOBIN 10.5 g/dL (12.0-16.0)
[2024-05-27 16:13] VITALS: BP 113/73; PULSE 72
== END 2024-05-27 19:44 | disposition home or self-care (01) | DRG 807 ==
LOC: MW.OBCHECK 00:16 → MW.OB 00:17 → OBSVTOIN 17:31 → MW.OB 20:39
PROVIDERS: ADMIT Obstetrics & Gynecology Obstetrics; ATTEND Obstetrics & Gynecology Obstetrics
PROC: 10E0XZZ Delivery of Products of Conception, External Approach (ICD-10-PCS; principal; 2024-05-26)
PROC: 3E0P7VZ Introduction of Hormone into Female Reproductive, Via Natural or Artificial Opening (ICD-10-PCS; 2024-05-26)
PROC: 3E0DXGC Introduction of Other Therapeutic Substance into Mouth and Pharynx, External Approach (ICD-10-PCS; 2024-05-26)
PROC: 3E0R3BZ Introduction of Anesthetic Agent into Spinal Canal, Percutaneous Approach (ICD-10-PCS; 2024-05-26)
PROC: 00HU33Z Insertion of Infusion Device into Spinal Canal, Percutaneous Approach (ICD-10-PCS; 2024-05-26)
DX: O80 Encounter for full-term uncomplicated delivery (principal); Z37.0 Single live birth; Z3A.39 39 weeks gestation of pregnancy; Z90.89 Acquired absence of other organs
CPT/HCPCS: 36415; 51702; 59025; 59409; 85014; 85018; 85027; 86592; 86850; 86900; 86901; 87340; A9270-GY; J2590; J2795; J7120